=== PATIENT | female | born 1980 | race Caucasian/White ===

== ENCOUNTER 2021-02-15 11:32 | Emergency (ER) | payer OTHER ==
[2021-02-15 11:46] VITALS: RESP 18
[2021-02-15] MEDS ORDERED: ACETAMINOPHEN TAB 325 MG TAB PO STA (12:04)
--- NOTE | 2021-02-15 12:30 | ED ---
Head Injury HPI - General Chief complaint: Head Injury Stated complaint: Head injury [facility]HS Time Seen by Provider: 02/15/21 12:00 Source: patient, RN notes reviewed Mode of arrival: ambulatory Limitations: no limitations - History of Present Illness Initial comments: Patient is a 40-year-old female that presents to the emergency department after hitting head on a heavy Bar. 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 She noted that she took ibuprofen prior to arrival. She notes that she did not lose consciousness is having no other symptoms. Patient denied chest pain shortness of breath headache nausea vomiting diarrhea constipation fever fatigue chills. - Related Data Allergies/Adverse reactions: Allergies Allergy/AdvReac Type Severity Reaction Status Date / Time bee venom protein (honey bee) Allergy Anaphylaxis Verified 02/15/21 11:46 Influenza Virus Vaccines Allergy Rash/Hives Verified 02/15/21 11:46 Review of Systems ROS Statement: Those systems with pertinent positive or pertinent negative responses have been documented in the HPI. ROS Other: All systems not noted in ROS Statement are negative. Past Medical History Past Medical History: Hyperlipidemia Additional Past Medical History / Comment(s): pre-diabetic History of Any Multi-Drug Resistant Organisms: None Reported Past Surgical History: Orthopedic Surgery Past Psychological History: Anxiety Smoking Status: Never smoker Past Alcohol Use History: None Reported Past Drug Use History: None Reported General Exam Limitations: no limitations General appearance: alert, in no apparent distress Head exam: Present: atraumatic, normocephalic, normal inspection Eye exam: Present: normal appearance, PERRL, EOMI. Absent: scleral icterus, conjunctival injection, periorbital swelling ENT exam: Present: normal exam, mucous membranes moist Neck exam: Present: normal inspection Respiratory exam: Present: normal lung sounds bilaterally. Absent: respiratory distress, wheezes, rales, rhonchi, stridor Cardiovascular Exam: Present: regular rate, normal rhythm, normal heart sounds. Absent: systolic murmur, diastolic murmur, rubs, gallop, clicks Extremities exam: Present: normal inspection, full ROM, normal capillary refill. Absent: tenderness, pedal edema, joint swelling, calf tenderness Neurological exam: Present: alert, oriented X3 Psychiatric exam: Present: normal affect, normal mood Skin exam: Present: warm, dry, intact, normal color. Absent: rash Course Vital Signs 02/15/21 11:41 Temperature 98.2 F Pulse Rate 95 Respiratory 18 Rate Blood Pressure 151/97 O2 Sat by Pulse 98 Oximetry Medical Decision Making - Medical Decision Making 40-year-old female hit had no complaint of headache. 650 mg of Tylenol ordered. Patient informed that she did not lose consciousness is not blood thinners and does not meet criteria for a computed tomography scan. She'll was agreeable with this plan and is ready to discharge home. Case discussed with Dr. Herrera. Disposition Clinical Impression: Contusion of scalp Disposition: HOME SELF-CARE Condition: Stable Instructions (If sedation given, give patient instructions): Concussion (ED) Additional Instructions: Please return to the Emergency Department if symptoms worsen or any other concerns. Follow-up with primary care in 1-2 days. Take Tylenol and Motrin alternating every 3 hours as needed for pain. Is patient prescribed a controlled substance at d/c from ED?: No Referrals: Ramiro Covington MD [Primary Care Provider] - 1-2 days Time of Disposition: 12:30
[2021-02-15 13:25] VITALS: BP 146/74; PULSE 87; TEMP 98.5
== END 2021-02-15 12:58 | disposition home or self-care (01) ==
LOC: EC 11:32
DX: S00.03XA Contusion of scalp, initial encounter (principal); W22.8XXA Striking against or struck by other objects, initial encounter
CPT/HCPCS: 99283

== ENCOUNTER → 2022-01-07 | Outpatient (CLI) | payer BC, OTHER ==
[2022-01-07 23:46] LABS: African American GFR (CKD) 108.2 (60.0-200.0); Anion Gap 12.5 mmol/L (10.00-18.00); Blood Urea Nitrogen 11.9 mg/dL (9.0-27.0); Carbon Dioxide 26.5 mmol/L (20.0-27.5); Non-African American GFR(CKD) 93.3 (60.0-200.0); Potassium 4.4 mmol/L (3.5-5.5)
[2022-01-07 23:49] LABS: HCT 45.5 % (37.2-46.3); Mean Platelet Volume 11.7 fL (9.5-12.2); NRBC Per 100 WBC 0 /100 WBCS (0.0-0.0); Platelet Count 362 X 10*3/uL (140-440); RDW 12.2 % (11.5-14.5); WBC 10.99 X 10*3/uL (4.50-10.00)
== END | disposition home or self-care (01) ==
LOC: LABWHC1 16:06
PROVIDERS: ATTEND Internal Medicine
DX: Z01.818 Encounter for other preprocedural examination (principal); R07.9 Chest pain, unspecified; R06.02 Shortness of breath; E78.2 Mixed hyperlipidemia
CPT/HCPCS: 36415; 80051; 82565; 84520; 85027

== ENCOUNTER → 2022-01-09 | Outpatient (CLI) | payer BC, OTHER ==
[2022-01-10 11:46] LABS: APTT 38 Sec(s) (<43); Anti-Thrombin III Antigen 92 % (80 - 120); DRVVT 1:1 Mix 43 Sec(s) (<44); Dilute Russell Viper Venom 51 Sec(s) (<44)
[2022-01-11 10:30] LABS: Anti-Thrombin III Activity 110 % (79-109)
[2022-01-11 11:08] LABS: Protein C (Activity) 147 % (71-138)
[2022-01-11 11:55] LABS: Free Protein S Antigen 123 % (50 - 147)
== END | disposition home or self-care (01) ==
LOC: LABWHC1 10:36
PROVIDERS: ATTEND Family Medicine
DX: I26.99 Other pulmonary embolism without acute cor pulmonale (principal)
CPT/HCPCS: 36415; 85300; 85301; 85303; 85306; 85613; 85730

== ENCOUNTER 2022-01-21 06:17 | Day surgery (SDC) | payer BC, OTHER ==
[~2022-01-21 06:17] MED LIST: ALPRAZolam 0.25 MG TAB PO PRN; ALPRAZolam 0.5 MG TAB PO PRN; ASPIRIN 325 MG TAB PO STA; ATORVASTATIN 80 MG TAB PO STA; HEPARIN SODIUM,PORCINE 10,000 UNIT in SODIUM CHLORIDE 0.9% 1,000 ML IRRIGATION PRN; HEPARIN SODIUM,PORCINE 2,500 UNIT in SODIUM CHLORIDE 0.9% 250 ML IRRIGATION PRN; NITROGLYCERIN SL TABS 0.4 MG TAB SUBLINGUAL PRN; SODIUM CHLORIDE 0.9% 1,000 ML in EMPTY BAG 1 BAG IV SCH
[2022-01-21] MEDS ORDERED: SODIUM CHLORIDE 0.9% 1,000 ML IV ONE (06:36)
[2022-01-21 07:03] VITALS: RESP 16; TEMP 97.9
[2022-01-21] MEDS ORDERED: METOPROLOL TARTRATE 50 MG TAB PO STA (07:06)
[2022-01-21] MEDS ORDERED: LOSARTAN 50 MG TAB PO STA (07:06)
[2022-01-21 07:11] LABS: Glucose,Whole Blood 306 mg/dL (70-110)
[2022-01-21] MEDS ORDERED: VERAPAMIL 2.5 MG/ML 2 ML AMP ONE (07:15)
[2022-01-21] MEDS ORDERED: HEPARIN SODIUM 1,000 UN/ML (10ML VL) ONE (07:26)
[2022-01-21] MEDS ORDERED: fentaNYL (PF) 50 MCG/ML 2 ML AMP ONE (07:26)
[2022-01-21] MEDS ORDERED: INSULIN ASPART (NovoLOG) 100 UNIT/ML VIAL SQ SCH (07:30)
[2022-01-21] MEDS ORDERED: MIDAZOLAM 2 MG/2 ML VIAL IV ONE (07:32)
[2022-01-21] MEDS ORDERED: fentaNYL (PF) 50 MCG/1 ML VIAL IV ONE (07:32)
[2022-01-21] MEDS ORDERED: LIDOCAINE 1% INJ 10MG/ML (5 ML VIAL-PF) SQ ONE (07:33)
[2022-01-21] MEDS: VERAPAMIL SYRINGE (5 MG/10 ML) INTRAARTER ONE ×2 (07:38→07:44)
[2022-01-21] MEDS ORDERED: HEPARIN SODIUM 1,000 UN/ML (10ML VL) IV ONE (07:42)
[2022-01-21] MEDS ORDERED: IOPAMIDOL-370 125ML BTL INJ ONE (07:51)
[2022-01-21] MEDS ORDERED: ACETAMINOPHEN TAB 500 MG TAB PO ONE (10:53)
--- NOTE | 2022-01-21 10:57 | P.CARDCATH ---
Description of Procedure: PROCEDURES PERFORMED: Left heart catheterization, bilateral coronary angiography INDICATION: Abnormal stress test CONSENT:I have discussed the risks, benefits and alternative therapies for the above-mentioned procedure and for both sedation/analgesia as well as necessary blood product administration, if indicated, as they pertain to this patient. The patient has indicated understanding and acceptance of the risks and procedures discussed. PROCEDURE: After the risks, benefits and alternatives of the above mentioned procedure explained in detail with the patient, informed consent was obtained. Patient was taken to the catheterization lab and prepped and draped in usual fashion. 1% lidocaine was used to anesthetize the right radial artery. A 6- [place] sheath was placed in the right radial artery using modified Seldinger technique. Left coronary angiography was performed with a 5-[place]ian JL 3.5 catheter and right coronary angiography was performed with a 5-[place] Lucian JR5 catheter in various views. A 5-[place] FR5 catheter was inserted into the left ventricle and pressure measurements were obtained. The right radial sheath was removed and a TR band was placed with hemostasis achieved. The patient tolerated the procedure well. Patient was transported back to the post catheterization holding area in stable condition. Conscious Sedation: Patient was monitored under the direct supervision of vision of myself for conscious sedation using Versed and fentanyl for a total duration of 20 minutes HEMODYNAMICS: Ao: 141/90 LV: 138/5, LVEDP 15 SELECTIVE CORONARY ARTERIOGRAPHY: LEFT MAIN: The left main is a large caliber vessel which bifurcates into the LAD and circumflex. There is no significant stenosis. LEFT ANTERIOR DESCENDING CORONARY ARTERY: LAD is a large caliber vessel which wraps around to the apex. There is no significant stenosis. LEFT CIRCUMFLEX CORONARY ARTERY: Left circumflex is a moderate caliber vessel without significant stenosis. RIGHT CORONARY ARTERY: The right coronary artery is a large caliber vessel which gives off a PDA and PLV branch and is the dominant vessel. There is no signif icant stenosis. FINAL IMPRESSION: 1. Normal coronary arteries as described above. 2. Normal left sided filling pressures PLAN: 1. Aggressive risk factor modification per most recent ACC/AHA guidelines. 2. Follow-up in the office in 1-2 weeks.
[2022-01-21 12:19] VITALS: BP 121/72; PULSE 86
== END 2022-01-21 12:05 | disposition home or self-care (01) ==
LOC: CATHCVL 06:17
PROVIDERS: ATTEND Internal Medicine
DX: R07.9 Chest pain, unspecified (principal); R94.39 Abnormal result of other cardiovascular function study; I10 Essential (primary) hypertension; E78.5 Hyperlipidemia, unspecified; E11.9 Type 2 diabetes mellitus without complications; Z88.7 Allergy status to serum and vaccine; Z91.030 Bee allergy status; Z82.49 Family history of ischemic heart disease and other diseases of the circulatory system
CPT/HCPCS: 93458; C1769; C1894; J2250; J2001; J1644; Q9967; J3010

== ENCOUNTER 2022-03-25 12:48 | Emergency (ER) | payer OTHER, BC ==
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
[2022-03-25 16:12] VITALS: BP 124/82; PULSE 76; RESP 16; TEMP 98.1
== END 2022-03-25 16:12 | disposition home or self-care (01) ==
LOC: EC 12:48
DX: S00.93XA Contusion of unspecified part of head, initial encounter (principal); E78.5 Hyperlipidemia, unspecified; F41.9 Anxiety disorder, unspecified; Z88.7 Allergy status to serum and vaccine; Z91.030 Bee allergy status; Z79.899 Other long term (current) drug therapy; Z79.01 Long term (current) use of anticoagulants; Y04.8XXA Assault by other bodily force, initial encounter
CPT/HCPCS: 70450; 72125; 99283

== ENCOUNTER → 2023-02-04 | Outpatient (CLI) | payer BC, OTHER ==
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
== END | disposition home or self-care (01) ==
LOC: RADMRIMAIN 18:38
PROVIDERS: ATTEND Orthopaedic Surgery
DX: M19.012 Primary osteoarthritis, left shoulder (principal)

== ENCOUNTER → 2023-04-22 | Outpatient (CLI) | payer BC, OTHER ==
--- NOTE | 2023-04-23 08:05 | MR ---
EXAMINATION TYPE: MR cervical spine wo con DATE OF EXAM: 04/22/2023 COMPARISON: Radiograph 04/10/2023 HISTORY: 42-year-old female M5 4.2, Neck pain, LUE radiculopathy, hx left shoulder injury. TECHNIQUE: Multiplanar, multisequence images of the cervical spine were acquired without contrast. FINDINGS: No craniocervical junction abnormalities, predental space widening, or prevertebral soft tissue swell ing. Incidental mild to moderate mucosal thickening left sphenoid sinus. Mild degenerative intervertebral disc desiccation is present throughout. In addition, posterior discu ssed by complex is are noted at C5-C6 and C6-C7. This impresses on to the ventral thecal sac abutting and slightly flattening the ventral cord. This results in mild overall spinal canal stenosis at C5-C 6 and [id number] at C6-C7 with AP canal dimension of 7 mm. Mild scattered uncovertebral joint and facet arthropathy mid to lower cervical spine. At C5-C6, there is mild uncovertebral joint and facet arthropathy contributing to mild bilateral neur al foraminal narrowing. At C6-C7, mild facet and uncovertebral joint arthropathy contributing to mild bilateral neural forami nal stenosis. No prevertebral or paravertebral soft tissue abnormality. Normal course and signal intensity of the cervical spinal cord. No suspicious bone marrow replacement. IMPRESSION: 1. Mild degenerative intervertebral disc desiccation throughout the cervical spine. Additional parker ior disc bulges are present from C5 through C7 levels contributing to mild to moderate narrowing of t he spinal canal with abutment and slight flattening of the ventral cord. No ky cord compression or high-grade canal compromise. 2. Additional scattered mild facet and uncovertebral joint arthropathy mildly narrowing the neurofora men at both of these levels.
== END | disposition home or self-care (01) ==
LOC: RADMRIMAIN 12:47
PROVIDERS: ATTEND Orthopaedic Surgery
DX: M47.22 Other spondylosis with radiculopathy, cervical region (principal); M99.71 Connective tissue and disc stenosis of intervertebral foramina of cervical region; M50.122 Cervical disc disorder at C5-C6 level with radiculopathy; M50.123 Cervical disc disorder at C6-C7 level with radiculopathy
CPT/HCPCS: 72141

== ENCOUNTER → 2023-07-23 | Outpatient (CLI) | payer BC, OTHER | END | disposition home or self-care (01) | LOC: LABPAT 08:33 | PROVIDERS: ATTEND Orthopaedic Surgery | DX: Z01.812 Encounter for preprocedural laboratory examination (principal); M50.20 Other cervical disc displacement, unspecified cervical region; Z22.322 Carrier or suspected carrier of Methicillin resistant Staphylococcus aureus | CPT/HCPCS: 86850; 86900; 86901; 87070 ==

== ENCOUNTER 2023-08-01 10:05 | Day surgery (SDC) | payer BC, OTHER ==
--- NOTE | 2023-08-01 06:50 | P.HPOR ---
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 I reviewed the patient's clinical syndrome, physical findings, and imaging studies during the appointment today. It is my impression that the patient has a diagnosis of. 1. C5-6, C6-7 herniated nucleus pulposus with stenosis 2. Left upper extremity radiculopathy Spine Surgery Risk Review Ms. Dixon is presenting for evaluation of neck and left upper extremity pain, left upper extremity numbness and tingling. It was my pleasure to have seen and examined Ms. Dixon. In our visit today we have had a chance to go over subjective complaints, physical examination findings and treatments including the natural course history without intervention and various interventional options. The patients imaging demonstrates: MRI of Cervical Spine completed at [facility] on 04/22/2023: I Mages reviewed with pt. These demonstrate C5-6 and C6-7 HNP with moderate to severe central and b/l foraminal stenosis. The HNP of C5-6 tracks behind the C6 Vertebral body about mcc down. There is begining stages of mylomalacia noted at this point due to the stenosis. There is spondylosis of these levels as well with ligamental hypertrophy and facet arthropathy.NO fractures.No lesions. Multiview AP/LAT/FLEX/EXT/OBQ Xrays of the Cervical Spine taken on 04/10/2023 at [facility] are reviewed today in office and demonstrate: - Re-reviewed with the patient today. C5-6 and C6-7 spondylosis with severe disc collapse with anterior and posterior osteophyte formation with facet arthrosis. Flattented CL due to collapse. On physical exam, Ms. Dixon demonstrates: A continued sharp, shooting pain throughout the left side of the neck that radiates down into the left shoulder and upper extremity with an ache-like, stabbing quality. The patient states their left arm pain is associated with numbness and tingling from the shoulder down into the fingertips. The patient worsening left hand dexterity. She states that ambulating the head to the left causes worsening symptoms. The patient reports experiencing severe sleep disturbances related to her ongoing pain and associated symptoms. I have explained to the patient that as their condition progresses it will cause further neurological deficits and eventual paralysis. Based on the patients imaging, physical exam, and the rapid progression and disabling nature of their symptoms, at this time I recommend surgery in the form of a: C5-7 ANTERIOR CERVICAL DISCECOMTY AND FUSION. I discussed the risk and benefits of this procedure at length with Ms. Dixon. The patient agreed to considered pursuing the procedure abovementioned. Prior to surgery, she should follow up with her PCP (Cardio, ID, IM etc) for clearance. Questions were invited and answered, and the patient wishes to proceed as outlined below. Currently, I am recommendin.C5-7 ANTERIOR CERVICAL DISCECOMTY AND FUSION 2.Review of surgical risks and benefits as well as an educational packet on the proposed surgical procedure. Risks: All surgical procedures come with inherent risks, including those related to positioning, anesthesia, intraoperative findings, and postoperative complications. It is important to understand that surgery does not come with any guarantee of a successful outcome as complications and adverse events are always possible. The patient was given a handout in office today discussing the surgical procedure and risks associated with the intervention, both of which were discussed with the patient. These risks include but are not limited to the following: * Experiencing same, different or even worse symptoms in back, neck, arms, or legs compared to before surgery. Requiring further surgery or other forms of treatment presently or at some time in the future at same or other levels of the intended spine surgery. On an extreme but fortunately relatively rare basis severe complication such as blindness, stroke, heart attack, temporary and/or permanent nerve injury, paralysis, coma, or may occur, sometimes without known explanation. Surgical complications may include but are not limited to risk of infection, fluid accumulation in the surgical dissection site, including a seroma or hematoma, that requires additional surgery, wound drainage, bleeding, new numbness or weakness, vision changes/loss, spinal fluid leakage, non-healing and/or infected incision, headaches, difficulty or inability to swallow, hoarseness, hemopneumothorax, pneumothorax, impotence, retrograde ejaculation, vaginal dryness; injury to nerves, spinal cord, blood vessels, lymphatics or other vital organs (i.e., bowel injury, injury to the great vessels); heterotopi c bone formation; complications related to the hardware such as screws, rods, cages including misplaced hardware, device failure, instrumentation at the wrong spine level, hardware fracture/breakage, or hardware loosening; vertebral failure of the spinal column above or below the newly placed hardware; retained surgical instrumentations or devices and the need for further surgery. * Medical risks of the planned spine surgery include but are not limited to generalized Infections to the whole body or local areas outside of the surgical site (sepsis), heart attack, bleeding, anaphylaxis, meningitis, seizure, epilepsy, hearing loss, burn henry, laceration of the head or other areas of the body, bruising, hypersensitivity of the skin, bladder over distension; allergic reaction; shoulder injury related to positioning; fat, blood and air clots to other areas of the body like heart, lungs, brain; failure of internal organs such as lungs, kidneys, liver and excessive bleeding. If blood transfusions are necessary, note that transfusions may cause intolerance reactions such as anaphylaxis or other complex reactions. Despite best efforts, the results of spine surgery might not heal in terms of bone, soft tissues such as skin, fascia, ligaments, and joints. Additionally, in order to achieve best possible results, spine surgery may be carried out beyond the initially planned levels and involve decompression, fusion including insertion of hardware at levels other than the original intended area of surgical interest change some portions of the procedure in order to ensure the best possible outcomes. With spine surgery and spinal fusion, there are different off label uses of instrumentation (devices, implants and hardware) as well as biological substances (bone morphogenic proteins, demineralized bone matrix) as well as using extra bone from allograft sources (i.e. cadaver bone) or autograft (iliac crest bone, ribs, or the spine itself). The patient has been given information about these practices and their inherent risks and benefits. [facility] is an educational center that serves as a training facility for neurosurgical and orthopedic [employer] HELPER and Nursing students. Physician assistants are medically trained surgical providers who function in the outpatient, inpatient, and operating room setting under the direct supervision of the attending surgeon. [facility] has multiple operating rooms with single and overlapping rooms running daily. They currently function under the required guidelines as produced by the [facility] Finance Committee with regards to the overlapping rooms and will continue to comply with changes to this policy as they occur. The requirements include and are complied with as follows: (1) the critical portions of the overlapping rooms will not occur at the same time, (2) the attending physician will be physically present during the critical portions of the procedure and immediately available during the entire case, and (3) a back-up attending is designated should the primary attending not be immediately available. The patient has had a chance to review all the listed information, has been given print outs detailing this information, and has had all his/her questions answered to their satisfaction. It was my pleasure to have seen and examined Ms. Dixon. In our visit today we have had a chance to go over my understanding of our patient's current condition, the natural course history without intervention and various interventional options. Questions were invited and answered, and the patient wishes to proceed as outlined above. I have seen and examined the patient for 25 minutes and we have spent more than 50% of the time in repeat and detailed counseling about the patient's condition, its natural course history with out and as much as can be predicted with surgery and re-review of various surgical treatment options. In conclusion, Ms. Dixon requested we proceed with the above suggested surgery and are willing to accept risks and limitations of the suggested surgery as nature of the disease process and our best attempts at treatment for the condition. Thank you again for allowing us to be part of your patient's care. Please don't hesitate to contact me if you have any further questions. FOLLOW UP: Post Procedure PATIENT EDUCATION: Medications Reviewed: YES In our visit today Ms. Dixon and I have had a chance to go over my understanding of the patient's current condition, the natural course history without intervention and various interventional options. Questions were invited and answered, and the patient wishes to proceed as outlined above. I will be sure to keep you updated after Ms. Dixon returns here for further follow-up. Thank you again for your referral. Please do not hesitate to contact me if you have any further questions. Signed and authenticated by: Reynaldo Lao [facility] [address] [facility], [address] [address] This message is confidential, intended only for the named recipient(s) and may contain information that is privileged or exempt from disclosure under applicable law. If you are not the intended recipient(s), you are notified that the dissemination, distribution or copying of this information is strictly prohibited. If you received this message in error, please notify the sender then delete this message. Past Medical History Past Medical History: Diabetes Mellitus, GERD/Reflux, Hyperlipidemia, Hypertension, Pulmonary Embolus (PE), Sleep Apnea/CPAP/BIPAP Additional Past Medical History / Comment(s): PE 2 yrs ago, CPAP use. History of Any Multi-Drug Resistant Organisms: None Reported Past Surgical History: Orthopedic Surgery Additional Past Surgical History / Comment(s): left ankle. bilateral knee caps put in place. bilateral carpal tunnel repair Past Anesthesia/Blood Transfusion Reactions: No Reported Reaction Smoking Status: Never smoker - Past Family History Father Family Medical History: Coronary Artery Disease (CAD), Diabetes Mellitus, Deep Vein Thrombosis (DVT) Mother Family Medical History: Diabetes Mellitus Medications and Allergies Home Medications Medication Instructions Recorded Confirmed Type Apixaban [Eliquis] 5 mg PO BID 01/18/22 07/29/23 History Atorvastatin [Lipitor] 80 mg PO HS 01/18/22 07/29/23 History Losartan Potassium [Cozaar] 100 mg PO HS 01/18/22 07/29/23 History Metoprolol Tartrate [Lopressor] 100 mg PO BID 01/18/22 07/29/23 History Omeprazole 40 mg PO HS 01/18/22 07/29/23 History Pioglitazone HCl 30 mg PO DAILY 01/18/22 07/29/23 History metFORMIN HCL 500 mg PO DAILY 01/18/22 07/29/23 History sitaGLIPtin [Januvia] 100 mg PO DAILY 01/18/22 07/29/23 History Dapagliflozin Propanediol [Farxiga] 10 mg PO DAILY 07/29/23 07/29/23 History Insulin Glargine/Lixisenatide 100 units SQ QA 07/29/23 07/29/23 History [Soliqua 100 Unit-33 Mcg/ml Pen] Tiotropium 18 Mcg/Puff [Spiriva] 1 puff INHALATION QA 07/29/23 07/29/23 History busPIRone HCL [Buspirone HCl] 10 mg PO TID 07/29/23 07/29/23 History Allergies Allergy/AdvReac Type Severity Reaction Status Date / Time bee venom protein (honey bee) Allergy Anaphylaxis Verified 07/29/23 12:44 Influenza Virus Vaccines Allergy Rash/Hives Verified 07/29/23 12:44 Physical Examination Osteopathic Statement: *. No significant issues noted on an osteopathic structural exam other than those noted in the History and Physical/Consult.
[~2023-08-01 10:05] MED LIST changes: -ALPRAZolam 0.25 MG TAB PO PRN; -ALPRAZolam 0.5 MG TAB PO PRN; -ASPIRIN 325 MG TAB PO STA; -ATORVASTATIN 80 MG TAB PO STA; -HEPARIN SODIUM,PORCINE 10,000 UNIT in SODIUM CHLORIDE 0.9% 1,000 ML IRRIGATION PRN; -HEPARIN SODIUM,PORCINE 2,500 UNIT in SODIUM CHLORIDE 0.9% 250 ML IRRIGATION PRN; -NITROGLYCERIN SL TABS 0.4 MG TAB SUBLINGUAL PRN; +ONDANSETRON 4 MG/2 ML VIAL IVP PRN; -SODIUM CHLORIDE 0.9% 1,000 ML in EMPTY BAG 1 BAG IV SCH; +TRANEXAMIC 1,000 MG/100ML-NACL 1,000 MG in SALINE 1 100ML.BAG IVPB PRN
[2023-08-01 10:59] LABS: Glucose,Whole Blood 203 mg/dL (70-110)
[2023-08-01] MEDS: ACETAMINOPHEN TAB 500 MG TAB PO PRN (11:06)
[2023-08-01] MEDS: GABAPENTIN 300 MG CAP PO PRN (11:07)
[2023-08-01] MEDS: ONDANSETRON 4 MG/2 ML VIAL IVP ONE (11:08)
[2023-08-01] MEDS: DEXAMETHASONE SOD PHOSPHATE 4 MG/ML 1 ML VIAL IV ONE (11:08)
[2023-08-01] MEDS: LACTATED RINGERS 1,000 ML IV SCH (11:09)
[2023-08-01] MEDS: INSULIN ASPART (NovoLOG) 100 UNIT/ML VIAL SQ ONE ×2 (11:10→16:00)
[2023-08-01] MEDS: IV FLUID CONTINUATION 1,000 ML IV ONE ×2 (11:12)
[2023-08-01] MEDS ORDERED: PROPOFOL 10 MG/ML 20 ML VIAL IV ONE (12:28)
[2023-08-01] MEDS ORDERED: ROCURONIUM 10 MG/ML (5 ML VIAL) IV ONE (12:28)
[2023-08-01] MEDS ORDERED: LIDOCAINE 1% INJ 10MG/ML (20 ML MDV) ONE (12:28)
[2023-08-01] MEDS ORDERED: KETAMINE HCL IN 0.9 % NACL 50 MG/5 ML SYRINGE ONE (12:28)
[2023-08-01] MEDS ORDERED: fentaNYL (PF) 50 MCG/ML 2 ML AMP ONE (12:28)
[2023-08-01] MEDS ORDERED: NEOSTIGMINE 1 MG/ML 10 ML VIAL ONE (12:28)
[2023-08-01] MEDS ORDERED: SUCCINYLCHOLINE CHLORIDE 200 MG/10 ML VIAL IV ONE (12:28)
[2023-08-01] MEDS ORDERED: GLYCOPYRROLATE 0.2 MG/ML 2 ML VIAL ONE (12:28)
[2023-08-01] MEDS ORDERED: PHENYLEPHRINE 10 MG/ML VIAL ONE (12:28)
[2023-08-01] MEDS ORDERED: TRANEXAMIC 1,000 MG/100ML-NACL PREMIX BAG ONE (12:28)
[2023-08-01] MEDS ORDERED: MIDAZOLAM 2 MG/2 ML VIAL ONE (12:28)
[2023-08-01 12:40] LABS: INR 0.9 (<1.2); Prothrombin Time 10.3 sec (10.0-12.5)
[2023-08-01] MEDS: THROMBIN (BOVINE) 5,000 UNIT VIAL TOPICAL ONE (13:13)
--- NOTE | 2023-08-01 15:12 | P.OP ---
Date of Procedure: 08/01/23 Preoperative Diagnosis: 1. 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 UE WEAKNESS BILATERAL 4. NECK PAIN 5. BMI 41 Postoperative Diagnosis: 1. 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 UE WEAKNESS BILATERAL 4. NECK PAIN 5. BMI 41 Procedure(s) Performed: 1. C5-6 ANTERIOR CERVICAL ARTHRODESIS 2. C6-7 ANTERIOR CERVICAL ARTHRODESIS 3. C5-6 AND C6-7 ANTERIOR INSTRUMENTATION 4. C5-6 AND C6-7 INSERTION OF BIOMECHANICAL DEVICE USE OF IO MICROSCOPE USE OF IONM MOD 22. THIS CASE TOOK 80% LONGER THAN EXPECTED DUE TO COMORBID CONDITIONS, HIGH BMI >40, EXTENT OF CERVICAL PATHOLOGY AND HIGH TECHNICALITY OF THE CASE. Implants: -4 WEB TRUSS CAGE 8MM 7 DEG X2 -4 WEB ANTERIOR PLATE WITH 14 MM SCREWS -MAGNATOS, AUTOGRAFT Anesthesia: GETA Surgeon: Reynaldo Hernadez Sheet Writer #1: Oni Colón (WAS PRESENT AND ASSISTED WITH ALL ASPECTS OF THE CASE FROM POSITION TO CLOSURE) Estimated Blood Loss (ml): 50 IV fluids (ml): 1,200 Urine output (ml): 0 Pathology: none sent Condition: stable Disposition: PACU Indications for Procedure: Ms. Dixon is presenting for evaluation of neck and left upper extremity pain, left upper extremity numbness and tingling. It was my pleasure to have seen and examined Ms. Dixon. In our visit today we have had a chance to go over subjective complaints, physical examination findings and treatments including the natural course history without intervention and various interventional options. The patients imaging demonstrates: MRI of Cervical Spine completed at [facility] on 04/22/2023: Arnel Johnston reviewed with pt. These demonstrate C5-6 and C6-7 HNP with moderate to severe central and b/l foraminal stenosis. The HNP of C5-6 tracks behind the C6 Vertebral body about alf down. There is begining stages of mylomalacia noted at this point due to the stenosis. There is spondylosis of these levels as well with ligamental hypertrophy and facet arthropathy.NO fractures.No lesions. Multiview AP/LAT/FLEX/EXT/OBQ Xrays of the Cervical Spine taken on 04/10/2023 at [facility] are reviewed today in office and demonstrate: - Re-reviewed with the patient today. C5-6 and C6-7 spondylosis with severe disc collapse with anterior and posterior osteophyte formation with facet arthrosis. Flattented CL due to collapse. On physical exam, Ms. Dixon demonstrates: A continued sharp, shooting pain throughout the left side of the neck that radiates down into the left shoulder and upper extremity with an ache-like, stabbing quality. The patient states their left arm pain is associated with numbness and tingling from the shoulder down into the fingertips. The patient worsening left hand dexterity. She states that ambulating the head to the left causes worsening symptoms. The patient reports experiencing severe sleep disturbances related to her ongoing pain and associated symptoms. I have explained to the patient that as their condition progresses it will cause further neurological deficits and eventual paralysis. Based on the patients imaging, physical exam, and the rapid progression and disabling nature of their symptoms, at this time I recommend surgery in the form of a: C5-7 ANTERIOR CERVICAL DISCECOMTY AND FUSION. I discussed the risk and benefits of this procedure at length with Ms. Dixon. The patient agreed to considered pursuing the procedure abovementioned. Prior to surgery, she should follow up with her PCP (Cardio, ID, IM etc) for clearance. Questions were invited and answered, and the patient wishes to proceed as outlined below. Currently, I am recommendin.C5-7 ANTERIOR CERVICAL DISCECOMTY AND FUSION Description of Procedure: C5-7 ACDF The patient was seen and examined in the preoperative area. All preoperative protocols were followed. Informed consent was obtained, risks and benefits of the procedure were discussed at length. Risks including bleeding infection damage to the surrounding tissue and risk of reoperation were discussed with the patient. Risk of anesthesia up to and including was discussed with the patient. These are outlined in the risk review. They were willing to accept these risks and all the risks of surgery. The patient was given a weight-based dose of antibiotics in the form of 2 g Ancef. The patient was seen and evaluated by the anesthesia team who deemed them fit for surgery. The site was marked, the patient was willing to proceed with the procedure. The patient was transferred to the operative suite by the Department of anesthesia. They were then drifted off to sleep by the department anesthesia and GETA was performed. The patient tolerated this well. Lombardo catheter was placed by nursing staff, a-traumatically. Once confirmation of lines and ventilation the patient was transferred to a Supine Basilio table very carefully. All bony prominences including wrists, elbows, axilla, chest, hips, and thighs, and feet were padded very well. Special attention was paid to the genitalia, and these were padded accordingly. SCDs were placed on bilateral lower extremities and were connected. Arms were well padded and placed at their side thumbs up. Once in position, again we confirmed good ventilation capab ilities and that lines were running appropriately. The patients Cervical spine was then exposed. 1010s were placed outlining the incision site. Standard alcohol was used to clean the incision site and allowed to dry. C-arm was used to bio-rosa the patient and confirm level for incision which was marked with a skin marker. Operative briefing was performed with all teams and everyone in agreement to proceed. The patient was then prepped and draped in a normal sterile fashion. Timeout was then performed, and all parties agreed with the procedure to be performed. Transverse skin incision was then made on the right side of the patient's neck 3 cm and dissection taken down to the platysma which was split transversely. Sub platysma flap was made, and interval identified between SCM and medial structures. Omohyoid was visualized and protected. Blunt dissection taken down to the anterior cervical fascia which was identified. Blunt probe was then placed and lateral image taken which confirmed levels for operation. These levels were then marked with a bovi. Subperiosteal dissection of the longissimus muscles were then done over these levels identifying uncovertebral joints bilaterally. Retractor was then placed deep to these muscles and held in place with a bed arm. Starting at C6-7, Herndon pins were placed into C6 and C7 and gentle distraction taken out over the levels. Deandre rongeur used to remove disc material. Operating microscope brought in for visualization. Complete discectomy performed at this level with curette, rongure and pituitary. High speed laila used to remove osteophytes anteriorly and posteriorly until PLL was identified. 6-0 up curette then used to identify the canal and resect the PLL. 2-0 and 3-0 Kerrison used then to remove PLL and disc herniation and performed b/l foraminotomies. Once good decompression was accomplished, meticulous hemostasis was performed. Sizers were then placed under lateral fluoroscopy until the desired height and lordosis. Cage was then selected, packed with autograft and allograft and placed under lateral imaging. Once in good position it was tested and stable. Motors run before and after cage placement were stable. The wound was irrigated, and autograft placed lateral to the cage anteriorly for fusion. Herndon pin was then removed from C7 and placed into C5. Gentle distraction taken out over C5-6 now. Complete discectomy done at C5-6 as described including decompression, b/l foraminotomies and PLL resection. Burring of endplates was minimal, osteophytes removed as described. Spacers were then sized and placed under lateral imaging. Cage selected, packed with graft and placed under lateral images. Once in position, meticulous hemostasis performed, and motors remained stable before and after cage placement. AP image confirmed good placement of cages. Wound was irrigated. A separate, non-integrated plate was then selected and sized under lateral image. The plate was then placed with screws. Fixed screws drilled into C7 b/l and screws placed. Then into C6 and finally C5 with variable screws. All locking mechanisms were set, and all screws had good purchase. Final AP and lateral images taken confirmed good placement of hardware and good reduction and anabaptist of height. The wound was then irrigated copiously with NSS. Surgicel placed deep in the wound. A deep drain placed out a separate incision and sewed into place. Layered closure then performed with 3-0 Vicryl in the platysma and subQ tissue. 4-0 Strata fix in the subcuticular tissue. The wound was then cleaned, and dried and skin glue placed. Once glue dried on Opifoam was placed. The patient was then transferred back to their hospital bed a-traumatically. The drain continued to hold suction. They were placed in a soft collar. They were then awakened by the department of anesthesia having tolerated the procedure well without complications.
--- NOTE | 2023-08-01 15:18 | FL ---
EXAMINATION TYPE: FL guidance operating room, XR cervical spine limited DATE OF EXAM: 08/01/2023 Comparison: None Clinical History: ANTERIOR CERVICAL FUSION Findings: 39 sec fluoro, DAP 4.3592 Gycm2. Images during ACDF. 6 images are submitted. Impression: Intraoperative fluoroscopy as above.
[2023-08-01] MEDS ORDERED: HYDROcodone/APAP 5-325MG 1 EACH TAB PO PRN (15:25)
[2023-08-01] MEDS ORDERED: HYDROmorphone 0.5 MG/0.5 ML SYRINGE IVP PRN (15:25)
[2023-08-01] MEDS ORDERED: MAGNESIUM HYDROXIDE 2,400 MG/30 ML CUP PO PRN (15:25)
[2023-08-01 15:34] LABS: Glucose,Whole Blood 236 mg/dL (70-110)
[2023-08-01] MEDS: HYDROmorphone 0.5 MG/0.5 ML SYRINGE IVP PRN (15:45)
[2023-08-01] MEDS: ACETAMINOPHEN TAB 325 MG TAB PO SCH (17:16)
[2023-08-01] MEDS: GABAPENTIN 300 MG CAP PO SCH (17:16)
[2023-08-01] MEDS: HYDROcodone/APAP 10-325MG 1 EACH TAB PO PRN (17:37)
[2023-08-01] MEDS: HYDROmorphone 1 MG/ML 1 ML SYRINGE IVP PRN (19:34)
[2023-08-01 20:15] LABS: Glucose,Whole Blood 200 mg/dL (70-110)
[2023-08-01] MEDS ORDERED: DEXTROSE 50% SYRINGE 50 ML IVP PRN ×2 (20:29)
[2023-08-01] MEDS: METOPROLOL TARTRATE 50 MG TAB PO SCH (20:51)
[2023-08-01] MEDS: LOSARTAN 50 MG TAB PO SCH (20:51)
[2023-08-01] MEDS: ATORVASTATIN 80 MG TAB PO SCH (20:51)
[2023-08-01] MEDS: INSULIN ASPART (NovoLOG) 100 UNIT/ML VIAL SQ SCH (20:52)
[2023-08-01] MEDS: PANTOPRAZOLE 40 MG TABLET PO SCH (20:52)
[2023-08-02] MEDS: CYCLOBENZAPRINE 5 MG TAB PO PRN (04:15)
--- NOTE | 2023-08-02 04:54 | P.CONS ---
History of Present Illness - Reason for Consult Consult date: 08/01/23 Postoperative medical management - Chief Complaint Cervical spine surgery - History of Present Illness 43-year-old female with diabetes mellitus hypertension history of pulmonary embolism on Eliquis Patient coming in for scheduled cervical spine surgery tolerated procedure well no observed immediate postoperative complications denies any difficulty in swallowing or breathing denies any chest pain or trouble breathing denies any nausea vomiting denies any abdominal pain she has urinated already tolerated p.o. intake Patient denies tobacco smoking illicit drugs or heavy alcohol Patient denies any new focal neurodeficits, reports that pain is well-tolerated review of systems Pertinent positives as noted in HPI. All other systems were reviewed and are negative on exam Constitutional: No acute distress, conversant, pleasant Eyes: Anicteric sclerae, moist conjunctiva, Pupils equal round reactive to light ENMT: NC/AT Oropharynx clear, no erythema, or exudates Neck: Neck collar in place Lungs: Clear to auscultation Clear to percussion Normal respiratory effort, no accessory muscle use Cardiovascular: Heart regular in rate and rhythm, No murmurs, gallops, or rubs No peripheral edema Abdominal: Soft Nontender, no guarding, rebound or rigidity Abdomen moving with respiration Normoactive bowel sounds Extremities: No digital cyanosis No clubbing Pedal pulses intact and symmetrical Radial pulses intact and symmetrical No calf tenderness Psychiatric: Alert and oriented to person, place and time Appropriate affect fair judgement Neuro Muscles Strength 4/5 in all 4 extremities Sensation to light touch grossly present throughout Cranial nerves II-XII grossly intact Past Medical History Past Medical History: Diabetes Mellitus, GERD/Reflux, Hyperlipidemia, Hypertension, Pulmonary Embolus (PE), Sleep Apnea/CPAP/BIPAP Additional Past Medical History / Comment(s): PE 2 yrs ago, CPAP use. History of Any Multi-Drug Resistant Organisms: None Reported Past Surgical History: Orthopedic Surgery Additional Past Surgical History / Comment(s): left ankle. bilateral knee caps put in place. bilateral carpal tunnel repair Past Anesthesia/Blood Transfusion Reactions: No Reported Reaction Past Psychological History: Anxiety Smoking Status: Never smoker Past Alcohol Use History: None Reported Past Drug Use History: None Reported - Past Family History Father Family Medical History: Coronary Artery Disease (CAD), Diabetes Mellitus, Deep Vein Thrombosis (DVT) Mother Family Medical History: Diabetes Mellitus Medications and Allergies Home Medications Medication Instructions Recorded Confirmed Type Apixaban [Eliquis] 5 mg PO BID 01/18/22 07/29/23 History Atorvastatin [Lipitor] 80 mg PO HS 01/18/22 07/29/23 History Losartan Potassium [Cozaar] 100 mg PO HS 01/18/22 07/29/23 History Metoprolol Tartrate [Lopressor] 100 mg PO BID 01/18/22 07/29/23 History Omeprazole 40 mg PO HS 01/18/22 07/29/23 History Pioglitazone HCl 30 mg PO DAILY 01/18/22 07/29/23 History metFORMIN HCL 500 mg PO DAILY 01/18/22 07/29/23 History sitaGLIPtin [Januvia] 100 mg PO DAILY 01/18/22 07/29/23 History Dapagliflozin Propanediol [Farxiga] 10 mg PO DAILY 07/29/23 07/29/23 History Insulin Glargine/Lixisenatide 100 units SQ QA 07/29/23 07/29/23 History [Soliqua 100 Unit-33 Mcg/ml Pen] Tiotropium 18 Mcg/Puff [Spiriva] 1 puff INHALATION QA 07/29/23 07/29/23 History busPIRone HCL [Buspirone HCl] 10 mg PO TID 07/29/23 07/29/23 History Allergies Allergy/AdvReac Type Severity Reaction Status Date / Time bee venom protein (honey bee) Allergy Anaphylaxis Verified 08/01/23 10:30 Influenza Virus Vaccines Allergy Rash/Hives Verified 08/01/23 10:30 Physical Exam Vitals: Vital Signs Temp Pulse Resp BP Pulse Ox 08/01/23 19:45 110 H 132/84 94 L 08/01/23 19:30 114 H 133/79 95 08/01/23 19:15 112 H 127/82 93 L 08/01/23 19:00 114 H 134/86 93 L 08/01/23 18:45 110 H 137/87 93 L 08/01/23 18:30 112 H 137/89 93 L 08/01/23 18:15 114 H 131/83 94 L 08/01/23 18:00 115 H 133/81 93 L 08/01/23 17:45 109 H 132/84 92 L 08/01/23 17:30 111 H 131/81 93 L 08/01/23 17:14 98.4 F 107 H 15 132/80 93 L 08/01/23 16:45 99 16 116/55 96 08/01/23 16:30 105 H 16 112/56 96 08/01/23 16:15 101 H 16 113/56 98 08/01/23 16:00 98 16 110/59 98 08/01/23 15:45 100 16 110/58 98 08/01/23 15:30 100 16 103/56 95 08/01/23 15:23 97.2 F L 99 16 105/55 95 08/01/23 10:42 97.2 F L 97 20 140/71 98 Intake and Output 08/01/23 08/01/23 08/01/23 06:59 14:59 22:59 Intake Total 1350 700 Output Total 50 Balance 1350 650 Intake: IV 1350 700 Output: Estimated Blood Loss 50 Other: # Voids 0 Weight 110.4 kg 110.4 kg Results Labs: Abnormal Lab Results - Last 24 Hours (Table) 08/01/23 08/01/23 08/01/23 Range/Units 10:54 15:31 20:12 POC Glucose (mg/dL) 203 H 236 H 200 H (70-110) mg/dL Assessment and Plan Assessment: Hypertension Continue with metoprolol 100 mg twice daily Continue with losartan 100 mg nightly p.o. Hyperlipidemia Continue with atorvastatin 80 mg p.o. nightly Diabetes mellitus Continue with Farxiga Insulin sliding scale GI prophylaxis Protonix 40 mg nightly Cervical spine surgery postoperative day 0 Management per primary orthopedic team History of pulmonary embolism 2 years ago Eliquis on hold secondary to cervical spine surgery resume when cleared by orthopedics Blood work is limited INR 0.9 Vitamin D 25-hydroxy 41 Check CBC and CMP in the morning Stable from medical standpoint at this time Thank you for this consultation
[2023-08-02 05:37] LABS: Glucose,Whole Blood 168 mg/dL (70-110)
[2023-08-02 07:22] LABS: Glucose,Whole Blood 156 mg/dL (70-110)
[2023-08-02] MEDS: SENNOSIDES-DOCUSATE SODIUM 1 EACH TAB PO SCH (08:32)
[2023-08-02] MEDS: DAPAGLIFLOZIN PROPANEDIOL 10 MG TABLET PO SCH (08:32)
--- NOTE | 2023-08-02 08:50 | P.PN ---
Subjective Progress Note Date: 08/02/23 Principal diagnosis: 1. 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 UE WEAKNESS BILATERAL 4. NECK PAIN Patient was seen at bedside this morning lying in the semirecumbent position with dressing and drain present over anterior cervical spine as well as soft cervical collar in place. Patient says she is in the moderate amount of pain and currently rates her pain as 7/10. Patient says she has been up walking a little bit around the room since surgery yesterday. Patient says she has urinated without issue since surgery. Patient is hoping to stay 1 more night for additional pain control. Patient denies chest pain, fever, shortness of breath, nausea, vomiting, change in vision, loss of bowel/bladder control. Objective - Vital Signs Vital signs: Vital Signs Temp 98.3 F 08/02/23 06:50 Pulse 96 08/02/23 06:50 Resp 17 08/02/23 06:50 BP 138/89 08/02/23 06:50 Pulse Ox 94 L 08/02/23 06:50 FiO2 Intake & Output 08/01/23 08/02/23 08/02/23 18:59 06:59 18:59 Intake Total 2049 Output Total 50 Balance 1999 Weight 110.4 kg Intake: IV 2049 Output: Estimated Blood Loss 50 Other: # Voids 0 2 - Exam Soft cervical collar is in place as well as drain in surgical dressing over anterior cervical spine. Dressing appears to be clean, dry, intact. There is 50 cc serosanguineous output overnight and drain. There is moderate tenderness to palpation diffusely throughout the anterior cervical spine near incision. Nontender to palpation throughout rest of exam. Patient does have limited range of motion in the bilateral shoulder secondary to surgery and stiffness and referred pain to the neck. Full range of motion throughout bilateral elbows and wrist in flexion's extension. Patient is able to wiggle digits and upper extremities. 4/5 in bilateral elbows and wrist in flexion/extension. Straight Cutter Machine strength 4/5 bilaterally. Negative Homans bilaterally. Negative Allison bilaterally. Negative clonus bilaterally. Radial pulse intact, 2+ bilaterally. Neurovascular status intact. Cap refill under 3 seconds in digits of upper extremities. - Labs Labs: Abnormal Lab Results - Last 24 Hours (Table) 08/01/23 08/01/23 08/01/23 Range/Units 10:54 15:31 20:12 POC Glucose (mg/dL) 203 H 236 H 200 H (70-110) mg/dL 08/02/23 08/02/23 Range/Units 05:33 07:19 POC Glucose (mg/dL) 168 H 156 H (70-110) mg/dL Assessment and Plan Assessment: 1. 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 UE WEAKNESS BILATERAL 4. NECK PAIN -Postop day 1 status post C5-C7 ACDF Plan: 1. C5-6 AND C6-7 SPONDYLOSIS WITH SEVERE STENOSIS; HNP C5-6, C6-7 WITH RADICULOPATHY; UE WEAKNESS BILATERAL; NECK PAIN -C5-C7 ACDF performed yesterday, 08/01/2023. Patient stable at bedside this morning in a moderate amount of pain. Soft c-collar and dressing and drain in place over anterior cervical spine. Maintain drain to full suction at this time. Assess dressings daily. Prescription for walker was signed reassess tomorrow with possible discharge home tomorrow. 2. Appreciate medical management 3. Pain management -[place]; gabapentin; Flexeril 4. DVT prophylaxis - mechanical 5. GI prophylaxis -senna; milk of magnesia; Protonix 6. PT/OT -soft c-collar on at all times. 7. Encourage incentive spirometer use 8. Discharge planning -plan for home tomorrow versus Friday Time with Patient: Less than 30
[2023-08-02] MEDS: IPRATROPIUM 0.5 MG/2.5 ML NEBU INHALATION SCH (09:24)
[2023-08-02 09:45] LABS: Basophils # (A) 0.05 X 10*3/uL (0.00-0.10); Basophils % (A) 0.3 %; Eosinophils # (A) 0.02 X 10*3/uL (0.04-0.35); Eosinophils % (A) 0.1 %; HCT 40.9 % (37.2-46.3); HGB 13.6 g/dL (12.0-15.0); Lymphocytes # (A) 2.31 X 10*3/uL (0.90-5.00); Lymphocytes % (A) 13.9 %; MCH 30.3 pg (27.0-32.0); MCHC 33.3 g/dL (32.0-37.0); MCV 91.1 FL (80.0-97.0); Mean Platelet Volume 10.6 FL (9.5-12.2); Monocytes # (A) 1.22 X 10*3/uL (0.20-1.00); Monocytes % (A) 7.3 %; NRBC Per 100 WBC 0 X 10*3/uL (0.00-0.01); Neutrophils # (A) 12.97 X 10*3/uL (1.80-7.70); Neutrophils % (A) 78.1 %; Platelet Count 328 X 10*3/uL (140-440); RBC 4.49 X 10*6/uL (4.10-5.20); RDW 12.9 % (11.5-14.5); WBC 16.62 X 10*3/uL (4.50-10.00)
[2023-08-02 11:13] LABS: Blood Urea Nitrogen 10.5 mg/dL (9.0-27.0); Calcium 9.2 mg/dL (8.7-10.3); Carbon Dioxide 23.1 mmol/L (21.6-31.8); Chloride 99 mmol/L (96-109); Glucose 167 mg/dL (70-110); Potassium 4.3 mmol/L (3.5-5.5); Sodium 136 mmol/L (135-145)
[2023-08-02 11:49] LABS: Glucose,Whole Blood 167 mg/dL (70-110)
[2023-08-02] MEDS: INSULIN DETEMIR (LEVEMIR) 100 UNIT/ML SYR SQ SCH (12:09)
--- NOTE | 2023-08-02 13:31 | P.PN ---
Subjective Progress Note Date: 08/02/23 Patient is a 43-year-old female with known diabetes mellitus type 2 insulin requiring, hypertension, and prior pulmonary embolism anticoagulated with Eliquis who presented to the hospital for elective ACDF C5-C7. Patient seen and examined at bedside. She still having some significant pain. Denies any chest pain or shortness of breath. She is having a poor appetite still. No nausea. Vital signs reviewed General: Nontoxic, no distress, appears at stated age, soft cervical collar in place Cardiovascular: S1S2 reg, no murmur Lungs: CTA bilateral, no rhonchi, no rales, no accessory muscle use Abdominal: Soft, nontender to palpation, no guarding Ext: No gross muscle atrophy, no edema b/l lower extremities, no contractures Neuro: CN II-XI grossly intact, no focal neuro deficits Psych: Alert, oriented, appropriate affect Assessment/Plan: 43-year-old female status post C5-7 ACDF -Postoperative management per orthopedic surgery History of pulmonary embolism -Resume Eliquis when okay with orthopedic spine surgery Diabetes mellitus type 2, poorly controlled at home with A1c 9.7 -Levemir 10 units this morning (patient typically takes 20 units of glargine) -Sliding scale insulin -Farxiga 10 mg oral daily -Januvia, metformin, and pioglitazone on hold -Follow blood sugars Hypertension Dyslipidemia GERD -Cozaar 100 mg at night -Lipitor 80 mg at night Imaging: None new Data Review: Labs reviewed from today include CBC and basic metabolic profile which are remarkable for white blood cell count 16.62. Glucose was elevated at 167. Hemoglobin A1c 9.7 Thank you for allowing us to participate in the care of this pleasant patient. Do not hesitate to contact us with questions. Someone can be reached from the [facility] hospitalist group all hours of the day at [phone] or via [employer]. This dictation was prepared using [employer] voice recognition software. Though every attempt is made to correct errors during dictation some may still exist. Objective - Vital Signs Vital signs: Vital Signs Temp 98.3 F 08/02/23 06:50 Pulse 88 08/02/23 12:41 Resp 17 08/02/23 06:50 BP 138/89 08/02/23 06:50 Pulse Ox 94 L 08/02/23 06:50 FiO2 Intake & Output 08/01/23 08/02/23 08/02/23 18:59 06:59 18:59 Intake Total 2049 Output Total 50 Balance 2000 Weight 110.4 kg Intake: IV 2049 Output: Estimated Blood Loss 50 Other: Voiding Method Toilet # Voids 0 2 - Labs CBC & Chem 7: 08/02/23 06:35 08/02/23 06:35 Labs: Abnormal Lab Results - Last 24 Hours (Table) 08/01/23 08/01/23 08/02/23 Range/Units 15:31 20:12 05:33 WBC (4.50-10.00) X 10*3/uL Immature Gran # (0.00-0.04) X 10*3/uL Neutrophils # (1.80-7.70) X 10*3/uL Monocytes # (0.20-1.00) X 10*3/uL Eosinophils # (0.04-0.35) X 10*3/uL Anion Gap (4.00-12.00) mmol/L Creatinine (0.6-1.5) mg/dL BUN/Creatinine Ratio (12.00-20.00) Ratio Glucose (70-110) mg/dL POC Glucose (mg/dL) 236 H 200 H 168 H (70-110) mg/dL Hemoglobin A1c (<=6.0) % 08/02/23 08/02/23 08/02/23 Range/Units 06:35 06:35 06:35 WBC 16.62 H (4.50-10.00) X 10*3/uL Immature Gran # 0.05 H (0.00-0.04) X 10*3/uL Neutrophils # 12.97 H (1.80-7.70) X 10*3/uL Monocytes # 1.22 H (0.20-1.00) X 10*3/uL Eosinophils # 0.02 L (0.04-0.35) X 10*3/uL Anion Gap 13.90 H (4.00-12.00) mmol/L Creatinine 0.5 L (0.6-1.5) mg/dL BUN/Creatinine Ratio 21.00 H (12.00-20.00) Ratio Glucose 167 H (70-110) mg/dL POC Glucose (mg/dL) (70-110) mg/dL Hemoglobin A1c 9.7 H (<=6.0) % 08/02/23 08/02/23 Range/Units 07:19 11:46 WBC (4.50-10.00) X 10*3/uL Immature Gran # (0.00-0.04) X 10*3/uL Neutrophils # (1.80-7.70) X 10*3/uL Monocytes # (0.20-1.00) X 10*3/uL Eosinophils # (0.04-0.35) X 10*3/uL Anion Gap (4.00-12.00) mmol/L Creatinine (0.6-1.5) mg/dL BUN/Creatinine Ratio (12.00-20.00) Ratio Glucose (70-110) mg/dL POC Glucose (mg/dL) 156 H 167 H (70-110) mg/dL Hemoglobin A1c (<=6.0) %
[2023-08-02 15:00] VITALS: BMI 41.8
[2023-08-02 16:18] LABS: Glucose,Whole Blood 169 mg/dL (70-110)
[2023-08-02 20:54] LABS: Glucose,Whole Blood 295 mg/dL (70-110)
[2023-08-03 04:31] VITALS: RESP 18
[2023-08-03 05:42] LABS: Glucose,Whole Blood 188 mg/dL (70-110)
[2023-08-03] MEDS: LINAGLIPTIN 5 MG TABLET PO SCH (09:08)
[2023-08-03] MEDS: INSULIN DETEMIR (LEVEMIR) 100 UNIT/ML SYR SQ STA (09:08)
[2023-08-03 09:21] VITALS: BP 125/81; TEMP 98.3
--- NOTE | 2023-08-03 11:16 | P.DS ---
Providers Date of admission: 08/01/2023 Expected date of discharge: 08/03/23 Attending physician: Reynaldo Hernadez, Consults: 08/01/23 15:25 Consult Physician Routine Consulting Provider: Lupe Ledezma Consult Reason/Comments: medical management s/p C5-C7 ACDF Do you want consulting provider notified?: Yes Primary care physician: Stated None Hospital Course: Date of admission: 08/01/2023 Date of discharge: 08/03/2023 Admission diagnosis: 1. 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 UE WEAKNESS BILATERAL 4. NECK PAIN Discharge diagnosis: Same Attending physician: Dr. Hernadez Surgical procedures: C5-C7 ACDF Brief history: Patient is a 43-year-old female with a history of C5-6 and C6-7 spondylosis with severe stenosis; herniated nucleus pulposus C5-C6 and C6-C7 w/radiculopathy. At this point patient has failed conservative treatment measures and has opted to proceed with a elective C5-C7 ACDF. Hospital course: Details of patient's surgery can be found in operative report. Patient tolerated the procedure well and was subsequently transported to orthopedic floor. Patient's orthopeidc and medical care was provided daily. Patient had daily laboratory tests performed for evaluation of overall blood counts. Patient had daily physical therapy to include strengthening range of motion as well as education with walker ambulation. Patient was noted to have a relatively uneventful postoperative course. Patient reported satisfactory pain control with oral pain medications by postoperative day 2. Patient showed satisfactory progress with physical therapy. Patient moved steadily through the program and had no difficulty meeting the goals by postoperative day 2. Given patient's otherwise satisfactory course and having met physical therapy goals, plan is to discharge patient home on postoperative day 2. Discharge condition/disposition: Patient will be discharged home in stable condition. Discharge medications: Instructions are given on resumption of patient's normal daily medications per primary care recommendation, in addition patient will be prescribed Sheldon; senna; Duricef; gabapentin; Flexeril. Spine Discharge and Recovery Instructions Date of Surgery: 08/01/2023 Diagnosis: 1. 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 UE WEAKNESS BILATERAL 4. NECK PAIN Procedure: C5-C7 ACDF Medications: See medication list All medication refills should be obtained through your primary care doctor or your clinic spine surgeon. Please discuss prescription refills at your follow up appointment. Do not call the hospital for medication refills. Dressing: Leave your dressing in place for a total of 5 days post operatively. Then you may remove your dressing and leave open to air. Keep the area clean and if not able to keep area clean, then cover with sterile gauze and tape. Showering: You may shower 3 days after your procedure allowing soap and water to run over incision. Do not scrub. Do not soak. Blot dry. Follow up: Please confirm a follow up appointment with your surgeon 3 weeks post operatively. Please make an appointment to follow up with your PCP in 1-2 weeks after surgery for evaluation `3 phase, 3-week plan POST OP WEEKS 1-3 1. Lifting/carrying/pushing/pulling limited to less than 5 pounds. 2. Do not sit for longer than 15 minutes at one time. Get up and walk around. Prolonged sitting is NOT advised. If you lay down, see if you can tolerate laying down on you front (belly side) 3. Walk for periods of 15 minutes = 1 mile but no longer; do it multiple times times each day. 4. Ice your low back after activity. POST OP WEEKS 3-6 1. Lifting limited to less than 20 pounds. 2. Do not sit for longer than 30 minutes at a time. Frequently change positions. Use a sit-to stand workstation or take frequent breaks from sitting if you have returned to work. 3. Walk for 30 minutes each day. If possible, do these three or more times a day POST OP WEEKS 6+ At your 6-week appointment we will give you a physical therapy referral to focus on a core stabilization and strengthening program. You should also work on leg & buttock strengthening, hamstring & quadriceps stretching, and continue a low impact aerobic activity program such as swimming, walking, or riding a stationary bicycle. During the initial 6 weeks after your surgery, you are at the highest risk of re-injuring your spine. You should generally avoid BLTs (bending, lifting and twisting combination motions) and follow the above guidelines to reduce the chance of reinjury. You can anticipate post op appointments in our office at approximately 3 weeks and 6 weeks after your surgery. INCISION CARE: If your incision is not draining you do NOT need to cover it with a dressing. Keep your incision clean, dry and intact. In most cases, we apply skin glue, carey or sutures to the incision at the time of surgery. This will be like a crust or have the appearance of a scab and will fall off in time on its own. The stitches or carey need to be removed at 3 weeks post op appointment. You may begin to shower 3 days after surgery (this allows the glue to sousa well). However, please avoid scrubbing the incision site or peeling off any of the skin glue. This will ensure optimal healing of your incision. Also, during this time avoid soaking the incision area in water - this includes swimming pools, hot tubs or baths. No ointments, lotions or oils on the incision until your surgeon allows. Leave carey, sutures or glue in place. Neurological dysfunction that comes on suddenly can also be a sign of a stroke. Below some common symptoms of a stroke are listed: B - balance difficulty such as sudden onset walking or leaning to one side - NEW E - eye problem such as sudden double vision or trouble seeing on one side - NEW F - Facial weakness or numbness on one side - NEW A - Arm or leg weakness or numbness on one side - NEW S - Slurred speech or difficulty with word finding - NEW T - Time is BRAIN! Call 911 as soon as you recognize these symptoms Diet: Consume a regular diet rich in vegetables and lean protein such as chicken or fish. You should consume in a ratio of approximately 20% fats|40% carbohydrates|40%protein. Vegetables, sweet potatoes, brown rice or quinoa are examples of good carbohydrates. Chips, white bread, cookies and sweets/sugar are examples of bad carbohydrates. Limit your bad carbs, go wild with good carbs. "Life's Simple 7" Guidelines as per [place] [employer] These will help you reclaim your life after surgery and facility maintenance helper in your recovery, keeping in mind your restrictions. (1) Get Active. Physical activity can help people lose weight, control high blood pressure and cholesterol, feel emotionally better, and sleep better. (2) Control Cholesterol. Avoid a diet high in saturated fat, trans fat, & cholesterol. Limit whole milk & cream, ice cream, butter, egg yolks, processed meats (like sausage and hot dogs), and fatty meats. Choose healthy foods that are low in saturated fat, trans fat and cholesterol which include: Fruits and vegetables, fiber rich grain products (like whole grain pasta and brown rice), lean meat such as chicken, fish, nuts, seeds, and legumes. (3) Eat Better. Eat small portions. Shop at the grocery with a list and do not stray from it. Tips for a healthy diet include: Limit sodium intake to less than 1500mg daily, avoid prepackaged, processed, and fast foods, choose a diet rich in fruits, vegetables, and whole grain, high fiber foods, and limit saturated & cholesterol in your diet. (4) Manage Blood Pressure. If you have high blood pressure, you should have a cuff at home so that you can check your blood pressure regularly. Be sure you have a good cuff. An arm one is generally better than a wrist one. Bring the cuff to a doctor's appointment to validate that the measurements that your cuff are taking are accurate. Take your blood pressure twice daily when you are sitting down and relaxing. Record the numbers in a log and bring this log with you to your doctors' appointments. (5) Lose Weight if your BMI is above 25. A healthy BMI is between 19-25. To calculate Your BMI, you may use a Standard BMI Calculator on the NIH BMI website: <www.nhlbi.nih.gov/guidelines/obesity/BMI/bmicalc.htm>. Weigh oneself daily. If you are overweight, set a goal to lose weight. A pound a week loss if needed is a good target. (6) Reduce Blood Sugar. Limit foods and liquids with "added sugars." (Added sugars include sucrose, fructose, glucose, maltose, dextrose, high fructose corn syrup, corn syrup, concentrated fruit juice and honey). (7) Stop Smoking. If you smoke, quitting smoking is one of the best things that you can do for your health. Smoking increases your risk of heart attack, stroke, and peripheral vascular disease, which is a build-up of plaque in your arteries. Please discard all the cigarettes and lighters in your house. Have a plan for what you will do when you have the urge to smoke. Direct and second- hand smoke shortens your life as well as the lives of your family, friends and others around you. For your health and the health of those around you, please consider quitting! Proper Bending Body Mechanics: Maintain a wide stance with one foot slightly in front of the other. Keep your back straight. Bend utilizing the strength in your hips and knees. Do not bend at the waist. Maintain the lifted object at your waist-level close to your body. Avoid lifting weight that causes immediately pain or pain anywhere in the body afterwards. Smoking/Nicotine If there was ever one thing that you could do to increase your overall health, decrease your risk of cardiovascular problems by about 39% the second you make the choice, it is to STOP SMOKING. Your body's most instant gratification is the second you stop smoking. We have all heard the studies, read the articles but it is true, smoking is extremely bad for your overall health, and moreover it is detrimental to your bone health. Nicotine, IN ANY FORM, kills bone cells, prevents your body from healing fractures, and significantly prolongs healing after surgery. In spine surgery specifically, it increases your risk of not healing your bones to create a fusion and increases your risk of having a revision surgery due to this up to 60%. I know it is hard. I know it feels impossible. But there are ways. Take contro l of your life. We are here to help you through it. And when you are ready, ask us and we can direct you to help if you desire. Use the START Plan to Quit Smoking (please visit the Helpguide.org website listed below for more information): S = Set a quit date. Choose a date within the next 2 weeks, so you have enough time to prepare without losing your motivation to quit. If you mainly smoke at work, quit on the weekend, so you have a few days to adjust to the change. T = Tell family, friends, and co-workers that you plan to quit. Let your friends and family in on your plan to quit smoking and tell them you need their support and encouragement to stop. Look for a quit carlton who wants to stop smoking as well. You can help each other get through the rough times. A = Anticipate and plan for the challenges you'll face while quitting. Most people who begin smoking again do so within the first 3 months. You can help yourself make it through by preparing ahead for common challenges, such as nicotine withdrawal and cigarette cravings. R = Remove cigarettes and other tobacco products from your home, car, and work. Throw away all your cigarettes (no emergency pack!), lighters, ashtrays, and matches. Wash your clothes and freshen up anything that smells like smoke. Shampoo your car, clean your drapes and carpet, and steam your furniture. T = Talk to your doctor about getting help to quit. Your doctor can prescribe medication to help with withdrawal and suggest other alternatives. If you can't see a doctor, you can get many products over the cou nter at your local pharmacy or grocery store, including the nicotine patch, nicotine lozenges, and nicotine gum. Resources for Quitting Smoking: <https://www.[place].gov/documents/[place] [facility]/Quit_To bacco_Resources_for_patients_313480_7.pdf> Supplementation: Take recommended dosages of Vitamin D and Calcium to help fortify your bones and help them to heal. See your health maintenance packet for dosages and recommended levels. DVT/VTE prophylaxis: You will be given compression stockings from the hospital. Wear these daily for the first two weeks after surgery. You may take them off at night. You may be prescribed a medication to help thin your blood. Take this as directed. If you are not prescribed this medication, early and frequent ambulation has been shown to be the best prophylaxis to deep vein thrombosis and sequelae related to this event. Assessment: 1. 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 UE WEAKNESS BILATERAL 4. NECK PAIN Procedures: C5-C7 ACDF Patient Condition at Discharge: Good Plan - Discharge Summary Discharge Rx Participant: Yes New Discharge Prescriptions: No Action metFORMIN HCL 500 mg PO DAILY Apixaban [Eliquis] 5 mg PO BID Omeprazole 40 mg PO HS Losartan Potassium [Cozaar] 100 mg PO HS Metoprolol Tartrate [Lopressor] 100 mg PO BID Insulin Glargine/Lixisenatide [Soliqua 100 Unit-33 Mcg/ml Pen] 100 units SQ QAM sitaGLIPtin [Januvia] 100 mg PO DAILY Atorvastatin [Lipitor] 80 mg PO HS Pioglitazone HCl 30 mg PO DAILY Dapagliflozin Propanediol [Farxiga] 10 mg PO DAILY Tiotropium 18 Mcg/Puff [Spiriva] 1 puff INHALATION QAM busPIRone HCL [Buspirone HCl] 10 mg PO TID Discharge Medication List Apixaban [Eliquis] 5 mg PO BID 01/18/22 [History] Atorvastatin [Lipitor] 80 mg PO HS 01/18/22 [History] Losartan Potassium [Cozaar] 100 mg PO HS 01/18/22 [History] Metoprolol Tartrate [Lopressor] 100 mg PO BID 01/18/22 [History] Omeprazole 40 mg PO HS 01/18/22 [History] Pioglitazone HCl 30 mg PO DAILY 01/18/22 [History] metFORMIN HCL 500 mg PO DAILY 01/18/22 [History] sitaGLIPtin [Januvia] 100 mg PO DAILY 01/18/22 [History] Dapagliflozin Propanediol [Farxiga] 10 mg PO DAILY 07/29/23 [History] Insulin Glargine/Lixisenatide [Soliqua 100 Unit-33 Mcg/ml Pen] 100 units SQ QAM 07/29/23 [History] Tiotropium 18 Mcg/Puff [Spiriva] 1 puff INHALATION QAM 07/29/23 [History] busPIRone HCL [Buspirone HCl] 10 mg PO TID 07/29/23 [History] Follow up Appointment(s)/Referral(s): Reynaldo Hernadez DO [Doctor of Osteopathic Medicine] - 2 Weeks Activity/Diet/Wound Care/Special Instructions: Spine Discharge and Recovery Instructions Date of Surgery: 08/01/2023 Diagnosis: 1. 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 UE WEAKNESS BILATERAL 4. NECK PAIN Procedure: C5-C7 ACDF Medications: See medication list All medication refills should be obtained through your primary care doctor or your clinic spine surgeon. Please discuss prescription refills at your follow up appointment. Do not call the hospital for medication refills. Dressing: Leave your dressing in place for a total of 5 days post operatively. Then you may remove your dressing and leave open to air. Keep the area clean and if not able to keep area clean, then cover with sterile gauze and tape. Showering: You may shower 3 days after your procedure allowing soap and water to run over incision. Do not scrub. Do not soak. Blot dry. Follow up: Please confirm a follow up appointment with your surgeon 3 weeks post operatively. Please make an appointment to follow up with your PCP in 1-2 weeks after surgery for evaluation `3 phase, 3-week plan POST OP WEEKS 1-3 1. Lifting/carrying/pushing/pulling limited to less than 5 pounds. 2. Do not sit for longer than 15 minutes at one time. Get up and walk around. Prolonged sitting is NOT advised. If you lay down, see if you can tolerate laying down on you front (belly side) 3. Walk for periods of 15 minutes = 1 mile but no longer; do it multiple times times each day. 4. Ice your low back after activity. POST OP WEEKS 3-6 1. Lifting limited to less than 20 pounds. 2. Do not sit for longer than 30 minutes at a time. Frequently change positions. Use a sit-to stand workstation or take frequent breaks from sitting if you have returned to work. 3. Walk for 30 minutes each day. If possible, do these three or more times a day POST OP WEEKS 6+ At your 6-week appointment we will give you a physical therapy referral to focus on a core stabilization and strengthening program. You should also work on leg & buttock strengthening, hamstring & quadriceps stretching, and continue a low impact aerobic activity program such as swimming, walking, or riding a stationary bicycle. During the initial 6 weeks after your surgery, you are at the highest risk of re-injuring your spine. You should generally avoid BLTs (bending, lifting and twisting combination motions) and follow the above guidelines to reduce the chance of reinjury. You can anticipate post op appointments in our office at approximately 3 weeks and 6 weeks after your surgery. INCISION CARE: If your incision is not draining you do NOT need to cover it with a dressing. Keep your incision clean, dry and intact. In most cases, we apply skin glue, carey or sutures to the incision at the time of surgery. This will be like a crust or have the appearance of a scab and will fall off in time on its own. The stitches or carey need to be removed at 3 weeks post op appointment. You may begin to shower 3 days after surgery (this allows the glue to sousa well). However, please avoid scrubbing the incision site or peeling off any of the skin glue. This will ensure optimal healing of your incision. Also, during this time avoid soaking the incision area in water - this includes swimming pools, hot tubs or baths. No ointments, lotions or oils on the incision until your surgeon allows. Leave carey, sutures or glue in place. Neurological dysfunction that comes on suddenly can also be a sign of a stroke. Below some common symptoms of a stroke are listed: B - balance difficulty such as sudden onset walking or leaning to one side - NEW E - eye problem such as sudden double vision or trouble seeing on one side - NEW F - Facial weakness or numbness on one side - NEW A - Arm or leg weakness or numbness on one side - NEW S - Slurred speech or difficulty with word finding - NEW T - Time is BRAIN! Call 911 as soon as you recognize these symptoms Diet: Consume a regular diet rich in vegetables and lean protein such as chicken or fish. You should consume in a ratio of approximately 20% fats|40% carbohydrates|40%protein. Vegetables, sweet potatoes, brown rice or quinoa are examples of good carbohydrates. Chips, white bread, cookies and sweets/sugar are examples of bad carbohydrates. Limit your bad carbs, go wild with good carbs. "Life's Simple 7" Guidelines as per [place] [employer] These will help you reclaim your life after surgery and facility maintenance helper in your recovery, keeping in mind your restrictions. (1) Get Active. Physical activity can help people lose weight, control high blood pressure and cholesterol, feel emotionally better, and sleep better. (2) Control Cholesterol. Avoid a diet high in saturated fat, trans fat, & cholesterol. Limit whole milk & cream, ice cream, butter, egg yolks, processed meats (like sausage and hot dogs), and fatty meats. Choose healthy foods that are low in saturated fat, trans fat and cholesterol which include: Fruits and vegetables, fiber rich grain products (like whole grain pasta and brown rice), lean meat such as chicken, fish, nuts, seeds, and legumes. (3) Eat Better. Eat small portions. Shop at the grocery with a list and do not stray from it. Tips for a healthy diet include: Limit sodium intake to less than 1500mg daily, avoid prepackaged, processed, and fast foods, choose a diet rich in fruits, vegetables, and whole grain, high fiber foods, and limit saturated & cholesterol in your diet. (4) Manage Blood Pressure. If you have high blood pressure, you should have a cuff at home so that you can check your blood pressure regularly. Be sure you have a good cuff. An arm one is generally better than a wrist one. Bring the cuff to a doctor's appointment to validate that the measurements that your cuff are taking are accurate. Take your blood pressure twice daily when you are sitting down and relaxing. Record the numbers in a log and bring this log with you to your doctors' appointments. (5) Lose Weight if your BMI is above 25. A healthy BMI is between 19-25. To calculate Your BMI, you may use a Standard BMI Calculator on the NIH BMI website: <www.nhlbi.nih.gov/guidelines/obesity/BMI/bmicalc.htm>. Weigh oneself daily. If you are overweight, set a goal to lose weight. A pound a week loss if needed is a good target. (6) Reduce Blood Sugar. Limit foods and liquids with "added sugars." (Added sugars include sucrose, fructose, glucose, maltose, dextrose, high fructose corn syrup, corn syrup, concentrated fruit juice and honey). (7) Stop Smoking. If you smoke, quitting smoking is one of the best things that you can do for your health. Smoking increases your risk of heart attack, stroke, and peripheral vascular disease, which is a build-up of plaque in your arteries. Please discard all the cigarettes and lighters in your house. Have a plan for what you will do when you have the urge to smoke. Direct and second- hand smoke shortens your life as well as the lives of your family, friends and others around you. For your health and the health of those around you, please consider quitting! Proper Bending Body Mechanics: Maintain a wide stance with one foot slightly in front of the other. Keep your back straight. Bend utilizing the strength in your hips and knees. Do not bend at the waist. Maintain the lifted object at your waist-level close to your body. Avoid lifting weight that causes immediately pain or pain anywhere in the body afterwards. Smoking/Nicotine If there was ever one thing that you could do to increase your overall health, decrease your risk of cardiovascular problems by about 39% the second you make the choice, it is to STOP SMOKING. Your body's most instant gratification is the second you stop smoking. We have all heard the studies, read the articles but it is true, smoking is extremely bad for your overall health, and moreover it is detrimental to your bone health. Nicotine, IN ANY FORM, kills bone cells, prevents your body from healing fractures, and significantly prolongs healing after surgery. In spine surgery specifically, it increases your risk of not healing your bones to create a fusion and increases your risk of having a revision surgery due to this up to 60%. I know it is hard. I know it feels impossible. But there are ways. Take control of your life. We are here to help you through it. And when you are ready, ask us and we can direct you to help if you desire. Use the START Plan to Quit Smoking (please visit the Helpguide.org website listed below for more information): S = Set a quit date. Choose a date within the next 2 weeks, so you have enough time to prepare with out losing your motivation to quit. If you mainly smoke at work, quit on the weekend, so you have a few days to adjust to the change. T = Tell family, friends, and co-workers that you plan to quit. Let your friends and family in on your plan to quit smoking and tell them you need their support and encouragement to stop. Look for a quit carlton who wants to stop smoking as well. You can help each other get through the rough times. A = Anticipate and plan for the challenges you'll face while quitting. Most people who begin smoking again do so within the first 3 months. You can help yourself make it through by preparing ahead for common challenges, such as nicotine withdrawal and cigarette cravings. R = Remove cigarettes and other tobacco products from your home, car, and work. Throw away all your cigarettes (no emergency pack!), lighters, ashtrays, and matches. Wash your clothes and freshen up anything that smells like smoke. Shampoo your car, clean your drapes and carpet, and steam your furniture. T = Talk to your doctor about getting help to quit. Your doctor can prescribe medication to help with withdrawal and suggest other alternatives. If you can't see a doctor, you can get many products over the counter at your local pharmacy or grocery store, including the nicotine patch, nicotine lozenges, and nicotine gum. Resources for Quitting Smoking: < https://www.[place].gov/documents/[facility]/Quit_Tobacco_Resources_for_patients_3134 80_7.pdf> Supplementation: Take recommended dosages of Vitamin D and Calcium to help fortify your bones and help them to heal. See your health maintenance packet for dosages and recommended levels. DVT/VTE prophylaxis: You will be given compression stockings from the hospital. Wear these daily for the first two weeks after surgery. You may take them off at night. You may be prescribed a medication to help thin your blood. Take this as directed. If you are not prescribed this medication, early and frequent ambulation has been shown to be the best prophylaxis to deep vein thrombosis and sequelae related to this event. Discharge Disposition: HOME SELF-CARE
--- NOTE | 2023-08-03 11:31 | P.PN ---
Subjective Progress Note Date: 08/03/23 Principal diagnosis: 1. 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 UE WEAKNESS BILATERAL 4. NECK PAIN Patient was seen at bedside this morning lying in the semirecumbent position with dressing and drain present over anterior cervical spine as well as soft cervical collar in place. Patient says she is in the fair amount of pain and says she is doing better today than she was yesterday.. Patient says she has been up walking around the room. Patient says she has urinated without issue since surgery. Patient is looking forward to going home today. Patient denies chest pain, fever, shortness of breath, nausea, vomiting, change in vision, loss of bowel/bladder control. Objective - Vital Signs Vital signs: Vital Signs Temp 98.3 F 08/03/23 07:03 Pulse 92 08/03/23 09:42 Resp 18 08/03/23 07:03 BP 125/81 08/03/23 07:03 Pulse Ox 92 L 08/03/23 07:03 FiO2 Intake & Output 08/02/23 08/03/23 08/03/23 18:59 06:59 18:59 Output Total 10 20 Balance -10 -20 Weight 110.4 kg Output: Drainage 10 20 Anterior Neck 10 20 Other: Voiding Method Toilet # Voids 1 - Exam Soft cervical collar is in place as well as drain in surgical dressing over anterior cervical spine. Drain and dressing removed at bedside this morning. Incision appears to be clean, dry, intact. New dressing was placed over incision. Nontender to palpation throughout rest of exam. Patient does have limited range of motion in the bilateral shoulder secondary to surgery and stiffness and referred pain to the neck. Full range of motion throughout bilateral elbows and wrist in flexion's extension. Patient is able to wiggle digits and upper extremities. 4/5 in bilateral elbows and wrist in flexion/extension. [employer] strength 4/5 bilaterally. Negative Homans bilaterally. Negative Allison bilaterally. Negative clonus bilaterally. Radial pulse intact, 2+ bilaterally. Neurovascular status intact. Cap refill under 3 seconds in digits of upper extremities. - Labs CBC & Chem 7: 08/02/23 06:35 08/02/23 06:35 Labs: Abnormal Lab Results - Last 24 Hours (Table) 08/02/23 08/02/23 08/02/23 Range/Units 06:35 11:46 16:17 Anion Gap 13.90 H (4.00-12.00) mmol/L Creatinine 0.5 L (0.6-1.5) mg/dL BUN/Creatinine Ratio 21.00 H (12.00-20.00) Ratio Glucose 167 H (70-110) mg/dL POC Glucose (mg/dL) 167 H 169 H (70-110) mg/dL 08/02/23 08/03/23 Range/Units 20:52 05:41 Anion Gap (4.00-12.00) mmol/L Creatinine (0.6-1.5) mg/dL BUN/Creatinine Ratio (12.00-20.00) Ratio Glucose (70-110) mg/dL POC Glucose (mg/dL) 295 H 188 H (70-110) mg/dL Assessment and Plan Assessment: 1. 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 UE WEAKNESS BILATERAL 4. NECK PAIN -Postop day 2 status post C5-C7 ACDF Plan: 1. C5-6 AND C6-7 SPONDYLOSIS WITH SEVERE STENOSIS; HNP C5-6, C6-7 WITH RADICULOPATHY; UE WEAKNESS BILATERAL; NECK PAIN -C5-C7 ACDF performed 08/01/2023. Patient stable at bedside this morning in fair amount of pain. Soft c-collar in place. Drain removed at bedside this morning. Dressing changed. Discharge home today. 2. Appreciate medical management 3. Pain management -[place]; gabapentin; Flexeril 4. DVT prophylaxis - mechanical 5. GI prophylaxis -senna; milk of magnesia; Protonix 6. PT/OT -soft c-collar on at all times. 7. Encourage incentive spirometer use 8. Discharge planning -discharge home today Time with Patient: Less than 30
[2023-08-03 12:11] LABS: Glucose,Whole Blood 247 mg/dL (70-110)
[2023-08-03 13:24] VITALS: PULSE 101
--- NOTE | 2023-08-03 14:29 | P.PN ---
Subjective Progress Note Date: 08/03/23 (delayed charting seen at 0810) Patient is a 43-year-old female with known diabetes mellitus type 2 insulin requiring, hypertension, and prior pulmonary embolism anticoagulated with Eliquis who presented to the hospital for elective ACDF C5-C7. Patient seen and examined at bedside. She does complain of neck pain. Swallowing is getting easier. She is having some skin irritation on her neck. Denies chest pain or shortness of breath. Vital signs reviewed General: Nontoxic, no distress, appears at stated age, soft cervical collar in place Cardiovascular: S1S2 reg, no murmur Lungs: CTA bilateral, no rhonchi, no rales, no accessory muscle use Abdominal: Soft, nontender to palpation, no guarding Ext: No gross muscle atrophy, no edema b/l lower extremities, no contractures Neuro: CN II-XI grossly intact, no focal neuro deficits Psych: Alert, oriented, appropriate affect Assessment/Plan: 43-year-old female status post C5-7 ACDF -Postoperative management per orthopedic surgery History of pulmonary embolism -Resume Eliquis when okay with orthopedic spine surgery Diabetes mellitus type 2, poorly controlled at home with A1c 9.7 Can increase Levemir to 20 units. Will give an extra 10 units today for a total of 20. Can resume soliqua on discharge. -Resume Januvia 100 gm dialy -Sliding scale insulin -Farxiga 10 mg oral daily -Resume metformin, and pioglitazone at discharge -Follow blood sugars Hypertension Dyslipidemia GERD -Cozaar 100 mg at night -Lipitor 80 mg at night Imaging: None new Data Review: Labs reviewed from today are blood sugars which have ranged from 188 this morning to high of 295 last night. Thank you for allowing us to participate in the care of this pleasant patient. Do not hesitate to contact us with questions. Someone can be reached from the [facility] hospitalist group all hours of the day at [phone] or via [employer]. This dictation was prepared using [employer] voice recognition software. T david every attempt is made to correct errors during dictation some may still exist. Objective - Vital Signs Vital signs: Vital Signs Temp 98.3 F 08/03/23 07:03 Pulse 101 H 08/03/23 12:50 Resp 18 08/03/23 07:03 BP 125/81 08/03/23 07:03 Pulse Ox 92 L 08/03/23 07:03 FiO2 Intake & Output 08/02/23 08/03/23 08/03/23 18:59 06:59 18:59 Output Total 10 20 Balance -10 -20 Weight 110.4 kg Output: Drainage 10 20 Anterior Neck 10 20 Other: Voiding Method Toilet # Voids 1 - Labs CBC & Chem 7: 08/02/23 06:35 08/02/23 06:35 Labs: Abnormal Lab Results - Last 24 Hours (Table) 08/02/23 08/02/23 08/03/23 Range/Units 16:17 20:52 05:41 POC Glucose (mg/dL) 169 H 295 H 188 H (70-110) mg/dL 08/03/23 Range/Units 12:08 POC Glucose (mg/dL) 247 H (70-110) mg/dL
[2023-08-04] MEDS ORDERED: INSULIN DETEMIR (LEVEMIR) 100 UNIT/ML SYR SQ SCH (07:00)
--- NOTE | 2023-08-07 09:02 | CT ---
EXAMINATION TYPE: CT cervical spine wo con CT DLP: 636.9 mGycm, Automated exposure control for dose reduction was used. DATE OF EXAM: 08/01/2023 11:50 PM COMPARISON: 03/25/2022. CLINICAL INDICATION:Female, 43 years old with history of s/p C5-C7 ACDF; PHH, s/p C5-C7 ACDF TECHNIQUE: Axial CT images from the skull base to the inferior aspect of T2 we obtained without intra venous contrast. Coronal and sagittal reformatted images were also reviewed. Contrast used: mL of , (if blank None) Oral contrast used: (if blank None) FINDINGS: Fracture: None. Osseous structures: Post fixation changes of the cervical spine with fixation hardware at C5 C6 C7. D iscectomy C3 at C5-C6 and C6-C7. Hardware appears intact. No evidence of fracture. Subjacent lucencie s along the surgical bed patent noted. There is drainage catheter in the surgical bed anterior to the spine. Vertebral alignment: Alignment within normal limits. Spinal canal/Neural Foramina: No evidence of significant spinal canal narrowing. No evidence for sign ificant neural foraminal stenosis. Neck soft tissues: Prevertebral soft tissues are within normal limits. Other: The airway is patent. The lung apices are clear. IMPRESSION: Post surgical changes without evidence for immediate postop application.
== END 2023-08-03 13:44 | disposition home or self-care (01) ==
LOC: OR 10:05 → 4SSUR 16:09 → OR 08-03 13:44
PROVIDERS: ATTEND Orthopaedic Surgery
DX: M47.22 Other spondylosis with radiculopathy, cervical region (principal); M48.02 Spinal stenosis, cervical region; M50.122 Cervical disc disorder at C5-C6 level with radiculopathy; M25.78 Osteophyte, vertebrae; R53.1 Weakness; I10 Essential (primary) hypertension; E11.65 Type 2 diabetes mellitus with hyperglycemia; E11.69 Type 2 diabetes mellitus with other specified complication; E78.5 Hyperlipidemia, unspecified; K21.9 Gastro-esophageal reflux disease without esophagitis; G47.33 Obstructive sleep apnea (adult) (pediatric); F41.9 Anxiety disorder, unspecified; Z86.711 Personal history of pulmonary embolism; Z91.030 Bee allergy status; Z88.7 Allergy status to serum and vaccine; Z79.84 Long term (current) use of oral hypoglycemic drugs; Z79.4 Long term (current) use of insulin; Z79.01 Long term (current) use of anticoagulants; Z79.899 Other long term (current) drug therapy
CPT/HCPCS: 22551; 22552; 22853 ×2; 20930; 20936; 22845; 95938; 94640 ×4; 97161; 81025; 80048; 85025; 85610; 82306; 83036; 72040; 72125; C1713; J2250; J0330; J1100; J2710; J0690 ×2; J2405; J2001; J3010; J1170 ×3; J2704; J2371